=== PATIENT | male | born 1995 | race Caucasian/White ===

== ENCOUNTER 2023-11-15 19:54 | Emergency (ER) | payer MEDICAID, SELFPAY ==
--- NOTE | 2023-11-15 19:59 | ED_ITS ---
HPI - General Adult General Chief complaint: ETOH/Substance Use Stated complaint: looking for detox Time Seen by Provider: 11/16/23 02:54 Source: patient Mode of arrival: ambulatory Limitations: no limitations History of Present Illness HPI narrative: Patient was been drinking alcohol and using cocaine wants to stop it requesting to go to detox denies any significant depression no SI HI never been to detox in the past patient lives in an apartment Related Data Allergies Allergy/AdvReac Type Severity Reaction Status Date / Time No Known Allergies Allergy Verified 11/15/23 19:59 Review of Systems 2 Review of Systems: Yes all other systems are reviewed and are negative [facility] Social History Social History Advance Directives: No Advance Directives Information Provided: No Physical Exam ED Vital Signs: Vital Signs - 24 hr 11/15/23 20:00 11/16/23 01:44 Temperature 96.8 F 98.0 F Pulse Rate 83 71 Respiratory Rate 18 16 Blood Pressure 130/81 125/60 Pulse Oximetry 97 96 Oxygen Delivery Method Room Air Room Air BMI result Body Mass Index 18.8 Appearance: Alert. Oriented X3. No acute distress. Eyes: PERRLA, No Nystagmus ENT: Pharynx normal. Oral Mucosa moist Neck: Normal inspection. Neck supple. CVS: Normal heart rate and rhythm. Pulses normal. Respiratory: No respiratory distress. Equal air entry bilateral, no wheezing/rales/rhonchi Abdomen: Soft and nontender. Bowel sounds are present, no mass palpable, no CVA tenderness Skin: Skin warm and dry. Normal skin color. Normal skin turgor. Extremities: No lower extremity edema. No calf tenderness Neuro: Oriented X 3. No motor deficit. No sensory deficit.No cerebellar signs , cranial nerves II-XII intact Course Course Course Narrative: RME performed by Toshia Keene PA-C. Patient is a 28 year old assigned male at presenting to the emergency department requesting help getting clean from cocaine and alcohol. Detailed physical exam and review of systems are deferred to the geomatics professor. Labs ordered. Patient placed back in the waiting room pending room availability and results. Medical Decision Making Medical Decision Making MDM Narrative: Patient with alcohol and cocaine abuse asking for detox will get care team in more for detox placement Lab Data MDM Lab Attestation statement: I reviewed the patient's lab results. 11/15/23 20:21 11/15/23 20:21 Labs: Lab Results 11/15/23 Range/Units 20:21 WBC 7.6 (4.8-10.8) X10*3/uL RBC 4.36 L (4.60-5.80) X10*6/uL Hgb 12.7 L (14.0-18.0) g/dl Hct 38.7 L (42.0-52.0) % MCV 88.8 (80.0-98.0) fL MCH 29.1 (27.0-33.0) pg MCHC 32.8 (31.0-36.0) g/dl RDW 13.4 (11.0-16.0) % Plt Count 312 (160-400) X10*3/uL MPV 9.3 L (9.4-12.4) fL Immature Gran % (Auto) 0.3 (0.0-0.4) % Neut % (Auto) 70.0 (45-73) % Lymph % (Auto) 18.6 L (20-40) % Evangeline % (Auto) 9.3 (2-11) % Eos % (Auto) 1.3 (0-4) % Baso % (Auto) 0.5 (0-2) % Lymph # (Auto) 1.4 (1.2-4.9) X10*3/uL Evangeline # (Auto) 0.7 (0.1-1.2) X10*3/uL Eos # (Auto) 0.1 (0.0-0.4) X10*3/uL Baso # (Auto) 0.0 (0.0-0.2) X10*3/uL Abs Immat Gran (auto) 0.02 (0.00-0.03) X10*3/uL Absolute Neuts (auto) 5.3 (2.0-8.3) x10*3/uL Absolute Nucleated RBC 0.000 (0.0-0.012) X10*3/uL Nucleated RBC % (auto) 0.0 (0.0-0.2) /100WBC Sodium 141 (135-145) mmol/L Potassium 3.9 (3.3-5.1) mmol/L Chloride 103 (96-108) mmol/L Carbon Dioxide 30 H (22-29) mmol/L Anion Gap 12 (12-20) BUN 17 H (9-16) mg/dL Creatinine 0.82 (0.5-1.4) mg/dL Estim Creat Clear Calc 118.4 Estimated GFR > 60 Random Glucose 98 (60-115) mg/dL Calcium 9.8 (8.4-10.2) mg/dL Total Bilirubin 0.5 (0.0-1.0) mg/dL AST 32 (5-37) U/L ALT 25 (0-40) U/L Alkaline Phosphatase 65 (39-117) U/L Total Protein 7.4 (6.5-8.0) g/dL Albumin 4.6 (3.5-5.0) g/dL Urine Color Yellow Urine Appearance Clear Urine pH 6.0 (5.0-9.0) Ur Specific [place] 1.015 (1.005-1.025) Urine Protein Negative (Neg-Trace) mg/dL Urine Glucose (UA) Negative (Negative) mg/dL Urine Ketones Negative (Negative) mg/dL Urine Blood Negative (Negative) Urine Nitrite Negative (Negative) Ur Leukocyte Esterase Negative (Negative) Salicylates < 5.0 L (15-30) mg/dL Urine Opiates Screen Not Detected (Not Detect) Urine Fentanyl Screen Not Detected (Not Detect) Acetaminophen < 3 (<30) mcg/mL Ur Barbiturates Screen Not Detected (Not Detect) Ur Phencyclidine Scrn Not Detected (Not Detect) Ur Amphetamines Screen Not Detected (Not Detect) U Benzodiazepines Scrn Not Detected (Not Detect) Urine Cocaine Screen POSITIVE H (Not Detect) U Marijuana (THC) Screen Not Detected (Not Detect) Ethyl Alcohol < 10 mg/dL COVID-19 (JAMIL) Negative (Negative) COVID-19 Clin Com See Note Discharge Plan Discharge Clinical Impression: Cocaine abuse, Alcohol use Patient Disposition: Still a Patient
[2023-11-15 20:00] VITALS: BP 130/81; PULSE 83; RESP 18; TEMP 36; O2SAT 97; BMI 18.8
--- NOTE | 2023-11-15 20:01 | ECG_ITS ---
Test Reason : COCAINE USE Blood Pressure : / mmHG Vent. Rate : 072 BPM Atrial Rate : 072 BPM P-R Int : 144 ms QRS Dur : 090 ms QT Int : 400 ms P-R-T Axes : 066 089 064 degrees QTc Int : 438 ms Normal sinus rhythm Normal ECG No previous ECGs available Referred By: Toshia Keene Electronically Signed By:Zachery Castillo
--- NOTE | 2023-11-15 20:23 | MHC.EDTECH ---
Patient brought into triage area, EKG taken per order and signed by provider,Labs,and a urine sample collected and sent to lab,patient brought back to waiting room.
[2023-11-15 20:30] LABS: MANUAL DIFF FLAG NO
[2023-11-15 20:35] LABS: Appearance Urine Clear; Color Urine Yellow; Glucose Urine UA Negative (Negative); Leukocyte Esterase Urine Negative (Negative); Nitrite Urine Negative (Negative); Specific Gravity - Urine 1.015 (1.005-1.025); Urine Blood Negative (Negative); Urine Ketones Negative (Negative); Urine Protein Negative (Neg-Trace)
[2023-11-15 20:43] LABS: Amphetamine Screen Urine Not Detected (Not Detect); Barbiturates, Urine Not Detected (Not Detect); Benzodiazepines Screen Urine Not Detected (Not Detect); Cannabinoid Screen Urine Not Detected (Not Detect); Cocaine Screen Urine POSITIVE (Not Detect); Fentanyl, urine Not Detected (Not Detect); Opiate Screen Urine Not Detected (Not Detect); Phencyclidine Screen Urine Not Detected (Not Detect)
[2023-11-15 20:50] LABS: Acetaminophen LAB < 3 mcg/mL (<30); Alanine Aminotransferase 25 U/L (0-40); Albumin Level 4.6 g/dL (3.5-5.0); Alkaline Phosphatase 65 U/L (39-117); Anion Gap 12 (12-20); Aspartate Amino Transferase 32 U/L (5-37); Basophils Percent Auto 0.5 % (0-2); Bilirubin Total 0.5 mg/dL (0.0-1.0); Blood Urea Nitrogen 17 mg/dL (9-16); COVID-19 Test Negative (Negative); Calcium 9.8 mg/dL (8.4-10.2); Carbon Dioxide 30 mmol/L (22-29); Chloride 103 mmol/L (96-108); Creatinine Clr Calc Pharmacy 118.4; Eosinophils Absolute Auto 0.1 X10*3/uL (0.0-0.4); Eosinophils Percent Auto 1.3 % (0-4); Estimated Glomerular Filt Rate > 60; Ethanol < 10 mg/dL; Glucose Random 98 mg/dL (60-115); Hematocrit 38.7 % (42.0-52.0); Hemoglobin 12.7 g/dl (14.0-18.0); IDNOW Serial# 6674DD1D; Imm Gran Abs Auto 0.02 X10*3/uL (0.00-0.03); Imm Gran Pct Auto 0.3 % (0.0-0.4); Lymphocytes Absolute Auto 1.4 X10*3/uL (1.2-4.9); Lymphocytes Percent Auto 18.6 % (20-40); Mean Corpuscular HGB Conc 32.8 g/dl (31.0-36.0); Mean Corpuscular Hemoglobin 29.1 pg (27.0-33.0); Mean Corpuscular Volume 88.8 fL (80.0-98.0); Mean Platelet Volume 9.3 fL (9.4-12.4); Monocytes Absolute Auto 0.7 X10*3/uL (0.1-1.2); Monocytes Percent Auto 9.3 % (2-11); Neutrophils Absolute Auto 5.3 x10*3/uL (2.0-8.3); Platelet Count 312 X10*3/uL (160-400); Potassium 3.9 mmol/L (3.3-5.1); Red Blood Count 4.36 X10*6/uL (4.60-5.80); Red Cell Distribution Width 13.4 % (11.0-16.0); Salicylate < 5.0 mg/dL (15-30); Sodium 141 mmol/L (135-145); Total Protein 7.4 g/dL (6.5-8.0); White Blood Count 7.6 X10*3/uL (4.8-10.8)
[2023-11-16 01:44] VITALS: BP 125/60; PULSE 71; RESP 16; TEMP 36.7; O2SAT 96
--- NOTE | 2023-11-16 01:46 | MHC.EDTECH ---
This pct just assumed care of Pt ,vitals taken ,Call [place] within Pt reach .
--- NOTE | 2023-11-16 02:08 | MHC.EDTECH ---
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
--- NOTE | 2023-11-16 02:36 | MHC.EDTECH ---
PATIENT WAS STILL HUNGRY HAD A CUP OF COFFEE AND 2 MORE SANDWICHES .
[2023-11-16 09:55] VITALS: BP 100/64; PULSE 56; RESP 18; TEMP 36.6; O2SAT 98
--- NOTE | 2023-11-16 11:53 | MHC.RECOVRN ---
Met with pt in ED16 after pt expressed interest in ATS. Pt reports alcohol use, up to 1.75 liters gin daily x 2 months, last use 11/14/22. Pt reports cocaine use, INH, 1 gram daily x over a year. Pt currently sitting in bed, awake, alert, easily engages in conversation. Pt reports feeling anxious and hopeful for treatment. Pt has never sought tx for PATRICIA in the past. Pt is interested in ATS level of care. Pt denies questions for t/w at this time. T/w will conduct bedsearch.
--- NOTE | 2023-11-16 12:31 | MHC.RECOVRN ---
[facility] does not have bed availability. Currently being reviewed by [facility].
--- NOTE | 2023-11-16 14:50 | MHC.RECOVRN ---
Met with pt in [facility] to follow up regarding ATS bedsearch. Pt continues to be reviewed by [facility]. Plan for pt to discharge and follow up with [facility] from home. Pt provided with phone number and information about the facility. Pt denies questions or concerns for t/w. ED provider aware. Pt will be transported via [employer].
== END 2023-11-16 14:54 | disposition home or self-care (01) ==
PROVIDERS: Physician Assistant Medical; Emergency Provider Emergency Medicine Emergency Medical Services
DX: F14.10 Cocaine abuse, uncomplicated (principal); F10.10 Alcohol abuse, uncomplicated; Y90.0 Blood alcohol level of less than 20 mg/100 ml; Z11.52 Encounter for screening for COVID-19
CPT/HCPCS: 80053; 80143; 80179; 80307; 81003; 85025; 87635; 93005; 99285

== ENCOUNTER → 2023-11-15 20:01 | Outpatient (BNV) | payer MEDICAID, SELFPAY | PROVIDERS: Emergency Provider Emergency Medicine Emergency Medical Services; Visit Provider Internal Medicine Cardiovascular Disease | DX: F14.10 Cocaine abuse, uncomplicated (principal) | CPT/HCPCS: 93010 ==

== ENCOUNTER 2024-11-08 06:25 | Emergency (ER) | payer MEDICAID, SELFPAY ==
--- NOTE | 2024-11-08 07:06 | PC.NURSE ---
pt noted leaving waiting room with another pt prior to triage.
== END 2024-11-08 07:37 | disposition left against medical advice (07) ==
PROVIDERS: Emergency Provider Student in an Organized Health Care Education/Training Program
DX: Z04.9 Encounter for examination and observation for unspecified reason (principal)

== ENCOUNTER 2024-12-09 03:10 | Emergency (ER) | payer OTHER, SELFPAY ==
--- OUTSIDE RECORDS SUMMARY | 2024-12-09 03:30 | XMS_ITS | Encounter Summary ---
Author Organization [facility] Address [address] [place] [address] Phone Care Team Providers Care Wheel [employer] Dealer Name Role Phone aRni Marie MD Primary Care Provider Unava ilable Encounter Details Date Type Department Care Team (Late st Contact Info) Description 06/10/2017 Conversion Encounter [facility] - [address] [address] Social History Tobacco Use Types Packs/Day Years Used Date Smoking Tobacco: Never Comments:Never smoker Sex and Gender Information Value Date Recorded Sex Assigned at Not on file Legal Sex Male 4:43 PM EDT Gender Identity Not on file Sexual Orientation Not on file documented as of this encounter Plan of Treatment Not on file documented as of this encounter Visit Diagnoses Not on filedocumented in this encounter Care Teams Wheel Of Fortune Dealer Relationship Specialty Start Date End Date Rani Marie MD PCP - General 06/04/17 documented as of this encounter
--- OUTSIDE RECORDS SUMMARY | 2024-12-09 03:30 | XMS_ITS | Clinical Summary ---
Author Organization [facility] Address [address] [place] [address] Phone Care Team Providers Care Body Former Name Role Phone Physician, No Pcp Primary Care Provider Unavaila ble Allergies No known active allergies Encounters Date Type Department Care Team Description 11/13/2024 8:16 PM EST - 11/13/2024 11:20 PM EST Emergency [facility] Emergency [address] [place] [address] Ryan Gonzalez MD Facial contusion, initial encounter (Primary Dx); Cervical strain, acute, initial encounter Discharge Disposition: Home or Self Care from Last 3 Months Social History Tobacco Use Types Packs/Day Years Used Date Smoking Tobacco: Never Assessed Sex and Gender Information Value Date Recorded Sex Assigned at Male 11/13/2024 8:42 PM EST Legal Sex Male 8:10 PM EST Gender Identity Male 11/13/2024 8:42 PM EST Sexual Orientation Choose not to disclose 2024 8:42 PM EST Last Filed Vital Signs Vital Sign Reading Time Taken Comments Blood Pressure 131/77 11/13/2024 8:28 PM EST Pulse 62 11/13/2024 8:28 PM EST Temperature 36.6 ??C (97.9 ??F) 11/13/2024 8:28 PM ES T Respiratory Rate 16 11/13/2024 8:28 PM EST Oxygen Saturation 98% 11/13/2024 8:28 PM EST Inhaled Oxygen Concentration - - Weight 72.6 kg (160 lb) 11/13/2024 8:28 PM EST Height 182.9 cm (6') 11/13/2024 8:28 PM EST Body Mass Index 21.7 11/13/2024 8:28 PM EST Plan of Treatment Health Maintenance Due Date Last Done Comments DTaP,Tdap,and Td Vaccines (7 - Td or Tdap) 06/24/2016 06/24/2006, 05/19/1999, 09/08/1995, Additional history exists COVID-19 Vaccine ( - season) 2024 Influenza Vaccine (#1) 2024 Depression Screening 11/14/2024 HIV Screening 11/14/2024 Hepatitis C Screening 11/14/2024 Social Influencers of Health Screening 11/14/2024 Hepatitis B Vaccines Completed 1994, 1994, 1994 HIB Vaccines Completed 04/23/1995, 02/1994, 1994, Additional history exists MMR Vaccines Completed 06/19/1998, 04/23/1995 IPV Vaccines Completed 05/19/1999, 02/1994, 1994, Additional history exists Meningococcal ACWY Vaccine Aged Out 09/03/2008 N o longer eligible based on patient's age to complete this topic Varicella Vaccines Completed 09/03/2008, 06/19/1998 HPV Vaccines Aged Out No longer eligi ble based on patient's age to complete this topic Hepatitis A Vaccines Aged Out No long er eligible based on patient's age to complete this topic Pneumococcal Vaccine: Pediatrics (0 to 5 Years) and At-Risk Patients (6 to 64 Years) Aged Out No longer eligible based on patient's age to complete this topic RSV Immunization Patients Under 20 months Aged Out No longer eligible based on patient's age to complete this topic Procedures Procedure Name Priority Date/Time Associated Diagnosis Comments CT CERVICAL SPINE WO CONTRAST STAT 11/13/2024 9:[address] MAXILLOFACIAL WO CONTRAST STAT 11/13/2024 9:[address] HEAD WO CONTRAST STAT 11/13/2024 9 :39 PM EST from Last 3 Months Results * CT Cervical Spine wo Contrast (11/13/2024 9:39 PM EST) Anatomical Region Laterality Modality Spine, C-spine Computed Tomogra phy 11/13/2024 10:1 0 PM EST Impressions 11/13/2024 10:10 PM EST 1. No acute fracture of the cervical spine. This document has been electronically signed by: Adi Chan DO on 11/13/2024 22:10:57 Narrative 11/13/2024 10:[address] cervical spine without contrast Comparison: None Findings: No acute cervical spine fracture or dislocation. Vertebral alignment is within normal limits. No significant degenerative change. No cervical fluid collections or masses. The visualized thyroid unremarkable. No consolidation or effusion at the lung apices. Paraseptal emphysematous disease involving the lung apices Visualized intracranial contents are unremarkable. Procedure Note Adi Chan MD - 11/13/2024 CT cervical spine without contrast Comparison: None Findings: No acute cervical spine fracture or dislocation. Vertebral alignment is within normal limits. No significant degenerative change. No cervical fluid collections or masses. The visualized thyroid unremarkable. No consolidation or effusion at the lung apices. Paraseptal emphysematous disease involving the lung apices Visualized intracranial contents are unremarkable. IMPRESSION: 1. No acute fracture of the cervical spine. This document has been electronically signed by: Adi Chan DO on 11/13/2024 22:10:57 Ryan Gonzalez MD IMG CT PROCEDURES Final Result * CT Maxillofacial wo Contrast (11/13/2024 9:39 PM EST) Anatomical Region Laterality Modality Head and Neck Computed Tomogra phy 11/13/2024 10:1 6 PM EST Impressions 11/13/2024 10:16 PM EST 1. No acute fracture on maxillofacial CT. This document has been electronically signed by: Adi Chan DO on 11/13/2024 22:16:50 Narrative 11/13/2024 10:[address] maxillofacial without contrast Comparison: CT - CT HEAD WO CONTRAST - 11/13/24 21:27 EST Findings: No acute fractures. No dislocations. Temporomandibular joints are intact. Paranasal sinuses and mastoid air cells clear. Orbits normal. Visualized intracranial contents are within normal limits. No foreign bodies. Procedure Note Adi Chan MD - 11/13/2024 CT maxillofacial without contrast Comparison: CT - CT HEAD WO CONTRAST - 11/13/24 21:27 EST Findings: No acute fractures. No dislocations. Temporomandibular joints are intact. Paranasal sinuses and mastoid air cells clear. Orbits normal. Visualized intracranial contents are within normal limits. No foreign bodies. IMPRESSION: 1. No acute fracture on maxillofacial CT. This document has been electronically signed by: Adi Chan DO on 11/13/2024 22:16:50 Ryan Gonzalez MD IM CT PROCEDURES Final Result * CT Head wo Contrast (11/13/2024 9:39 PM EST) Anatomical Region Laterality Modality Head and Neck Computed Tomogra phy 11/13/2024 10:0 8 PM EST Impressions 11/13/2024 10:08 PM EST 1. Study is partially limited by motion artifact and technique. Within this limitation, no acute intracranial process. This document has been electronically signed by: Adi Chan DO on 11/13/2024 22:08:00 Narrative 11/13/2024 10:[address] head without contrast Comparison: None Findings: Study is partially limited by motion artifact and technique. No intracranial mass, midline shift, hydrocephalus, or acute hemorrhage. No significant atrophy-like change or white matter disease. The visualized paranasal sinuses and mastoid air cells are normal. The orbits are unremarkable. No skull fracture. Procedure Note Adi Chan MD - 11/13/2024 CT head without contrast Comparison: None Findings: Study is partially limited by motion artifact and technique. No intracranial mass, midline shift, hydrocephalus, or acute hemorrhage. No significant atrophy-like change or white matter disease. The visualized paranasal sinuses and mastoid air cells are normal. The orbits are unremarkable. No skull fracture. IMPRESSION: 1. Study is partially limited by motion artifact and technique. Within this limitation, no acute intracranial process. This document has been electronically signed by: Adi Chan DO on 11/13/2024 22:08:00 Ryan Gonzalez MD IMG CT PROCEDURES Final Result from Last 3 Months Insurance [facility] Care Teams Body Former Relationship Specialty Start Date End Date Physician, No Pcp PCP - General 11/13/24
--- OUTSIDE RECORDS SUMMARY | 2024-12-09 03:30 | XMS_ITS | Encounter Summary ---
Author Organization [facility] Address [address] [place] [address] Phone Care Team Providers Care Coat Tailor Name Role Phone Rani Marie MD Primary Care Provider Unava ilable Encounter Details Date Type Department Care Team (Late st Contact Info) Description 06/30/2012 Documentation [facility] [address] [place], [place] [id number] Family Medicine, Physician [address] [place] [address] Social History Tobacco Use Types Packs/Day Years [...] on filedocumented in this encounter Care Teams Coat Tailor Relationship Specialty Start Date End Date Rani Marie MD PCP - General 06/04/17 documented as of this encounter
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
[2024-12-09 03:53] VITALS: BP 158/88; PULSE 68; RESP 16; TEMP 36.6; O2SAT 99; BMI 20.3
--- NOTE | 2024-12-09 04:23 | MHC.EDTECH ---
Delay in labs/EKG because Pt stepped outside.
== END 2024-12-09 05:42 | disposition left against medical advice (07) ==
PROVIDERS: Emergency Provider Emergency Medicine; PCP Nurse Practitioner Family
DX: F10.90 Alcohol use, unspecified, uncomplicated (principal); Z53.21 Procedure and treatment not carried out due to patient leaving prior to being seen by health care provider
CPT/HCPCS: 99281